=== PATIENT | male | born 1990 | race African-American/Black ===

== ENCOUNTER 2016-11-17 22:46 | Emergency (ER) | payer MEDICARE ==
[2016-11-17 23:12] LABS: AMPHETAMINE POS (NEG); BARBITURATES NEG (NEG); BENZODIAZEPINES NEG (NEG); COCAINE NEG (NEG); MARIJUANA NEG (NEG); OPIATES NEG (NEG); TRICYCLIC ANTIDEPRESSANTS NEG (NEG); U METHADONE NEG (NEG)
== END 2016-11-18 00:50 | disposition home or self-care (01) ==
LOC: CED 22:46
PROVIDERS: Emergency Medicine
DX: F15.10 Other stimulant abuse, uncomplicated (principal); F20.9 Schizophrenia, unspecified; F17.210 Nicotine dependence, cigarettes, uncomplicated
CPT/HCPCS: 80307; 99283